=== PATIENT | male | born 1955 | race Caucasian/White ===

== ENCOUNTER → 2022-03-04 09:01 | Outpatient (CLI) | payer MEDICARE, SELFPAY ==
[2022-03-04 11:29] LABS: COVID19 -Nasal RAPID Negative (Negative)
== END ==
PROVIDERS: PCP Family Medicine; Visit Provider Surgery
DX: Z20.822 Contact with and (suspected) exposure to COVID-19 (principal); Z01.812 Encounter for preprocedural laboratory examination
CPT/HCPCS: 87635; C9803

== ENCOUNTER 2022-03-05 13:09 | Day surgery (SDC) | payer MEDICARE, SELFPAY ==
[2022-03-01 09:00] VITALS: BMI 34.2
[2022-03-05] VITALS (20 sets, daily range): BP systolic 125–188; BP diastolic 72–125; PULSE 14–84; RESP 10–18; TEMP 36.1–37.1; O2SAT 92–97; BMI 34.2
[2022-03-05] MEDS: LACTATED RINGERS 1,000 ML 42 ML IV (13:59)
--- NOTE | 2022-03-05 14:03 | SUR.PREOP ---
Patient presents with HTN after several checks on both upper extremities. BP to left arm 206/127, HR 84; BP to right arm 188/118; patient states that he takes labatelol 100 mg; HCTZ 25 mg; nifedipine 30 mg and quinapril; but has not taken his medications since Friday because I forgot to read my pre-op paperwork. Patient asymptomatic. Notified Anesthesiologist Dr Bridger Estrada. Verbal orders received for Labetalol 100 mg po now. Notified Primary Nurse of orders.
[2022-03-05] MEDS: LABETALOL 100 MG TABLET PO (14:15)
--- NOTE | 2022-03-05 15:46 | PM.HP.1 ---
History of Present Illness History of Present Illness Date Patient Seen: 03/05/22 Time Patient Seen: 15:46 Chief complaint: LAP RECURRENT RIH REPAIR W/MESH Narrative: Alan is here for his laparoscopic recurrent right inguinal hernia repair with mesh. See office note from January for details. Patient History Medical History Anxiety Arthritis COVID-19 virus infection (10/2021) Diverticulosis Edema Enlarged prostate Headache, migraine Heart murmur Hypertension KAYLA (obstructive sleep apnea) PAF (paroxysmal atrial fibrillation) Surgical History History of knee surgery (2012) Hx of hernia repair Hx of shoulder surgery (2014) Family & Social History Family History Father Hypertension Mother Hypertension Grandmother Diabetes mellitus Social History: household members spouse Tobacco & Substance use: Tobacco type cigarettes Smoking Status Former smoker alcohol intake current alcohol intake frequency a few times a month Substance Use Type marijuana Meds Home Medications and Allergies Home Medications Medication Instructions Recorded Confirmed Type amitriptyline 25 mg tablet 25 mg PO BEDTIME PRN Sleep 01/28/22 03/01/22 History apixaban 5 mg tablet 5 mg PO BID 01/28/22 03/05/22 History aspirin 81 mg tablet,delayed 81 mg PO DAILY 01/28/22 03/05/22 History release (Adult Low Dose Aspirin) flecainide 150 mg tablet 150 mg PO Q12H 01/28/22 03/05/22 History hydrochlorothiazide 25 mg tablet 25 mg PO DAILY 01/28/22 03/05/22 History labetalol 100 mg tablet 100 mg PO DAILY 01/28/22 03/05/22 History montelukast 10 mg tablet 10 mg PO DAILY 01/28/22 01/28/22 History nifedipine 30 mg tablet,extended 30 mg PO DAILY 01/28/22 03/05/22 History release quinapril 40 mg tablet 40 mg PO DAILY 01/28/22 03/05/22 History tamsulosin 0.4 mg capsule 0.4 mg PO BEDTIME 03/01/22 03/05/22 History Allergies Allergy/AdvReac Type Severity Reaction Status Date / Time No Known Drug Allergies Allergy Verified 03/05/22 13:43 Exam Vital Signs (past 8 hours): - 03/05/22 13:49 03/05/22 14:15 03/05/22 15:16 Temperature 98.3 F Pulse Rate 84 76 72 Respiratory Rate 16 16 Blood Pressure 188/118 H 187/125 H 178/101 H Pulse Oximetry 96 96 Oxygen Delivery Method Room Air Room Air Oxygen Delivery Method Room Air Const General: No acute distress Assessment & Plan Assessment and plan (1) Recurrent right inguinal hernia: Status: Acute Plan We reviewed the risks and benefits of laparoscopic right inguinal hernia repair with mesh. He would like to proceed. Time Spent With Patient Critical Care time: I spent a total of [] minutes of critical care time on this patient's care today; this time is exclusive of procedural time.
[2022-03-05] MEDS: CEFAZOLIN 2 GM/100 ML PREMIX 100 ML IV (16:15)
--- NOTE | 2022-03-05 16:43 | SUR.OPER ---
Supine on padded OR bed with pink pad positioner, head on pillow, arms padded and tucked at sides, legs uncrossed, safety belt at thigh, tape over blanket over lower legs . Gel pad under bilateral heels.
[2022-03-05] MEDS: BUPIVACAINE 0.5% (PF) 30 ML, EPINEPHrine 0.15 MG INJ (17:32)
[2022-03-05] MEDS: LIDOCAINE 1% 20 ML INJ (17:33)
[2022-03-05] MEDS: OXYCODONE IR 5 MG TABLET PO ×2 (18:28→19:42)
[2022-03-05] MEDS: ACETAMINOPHEN 325 MG TABLET 975 MG PO (18:29)
--- NOTE | 2022-03-05 18:29 | PM.OP.1 ---
Operative Date/Time/Diagnoses Date of procedure: 03/05/22 Time of procedure: 18:29 Pre-op diagnosis: Recurrent right inguinal hernia Post-op diagnosis: same Procedure & Clinicians Procedure: Laparoscopic recurrent right inguinal hernia repair with mesh Same procedure as scheduled: Yes Surgeon: Phill Joyce Operative Notes Procedure in detail: The patient was given preoperative antibiotics. The patient was brought to the operating room, placed on the table in the supine position with the arms tucked and general anesthesia was induced. The abdomen was prepped and draped in the usual fashion. A time-out was performed. A 2 cm curvilinear supraumbilical incision was created and dissection was carried down to fascia. The fascia was scored transversely with cautery. A [place] was used to grasp the inferior leaf and elevate the abdominal wall. A Peon clamp was used to magaña the peritoneum. The Willy port was placed and the abdomen was insufflated to 15 mmHg. The camera was inserted, there was no evidence of any injury from the entry. There was a right direct inguinal hernia. 5 mm ports were placed under direct vision in the mid left and mid right abdomen. The patient was positioned in steep Trendelenburg. We created right peritoneal flap. The peritoneum was dissected off the cord structures. There was a very stuck fat containing indirect hernia. The fat was eventually able to be reduced. A a large right Bard mesh was brought in and placed over the defect with the medial edge against Tuan's ligament. The fatty hernia contents were allowed to sit within the concavity of the mesh which held it in place nicely. We then closed the peritoneal flap with a running 3-0 barbed suture. We took one last look around the abdomen and saw no other abnormalities. The suture was removed and accounted for. The 5 mm ports were removed under direct vision. The abdomen was desufflated. The Willy port was removed. Additional local was injected into the fascia and the infraumbilical fascial incision was closed with 3 interrupted 0 Vicryl sutures. The skin incisions were closed with 4 Monocryl, Steri-Strips and Band-Aids. Post-operative Condition: stable Disposition: PACU
[2022-03-05] MEDS: ONDANSETRON 4 MG/2 ML INJ IV (18:42)
[2022-03-05] MEDS: TAMSULOSIN 0.4 MG CAPSULE PO (21:20)
[2022-03-05] MEDS: FLECAINIDE 100 MG TABLET 150 MG PO (21:20)
[2022-03-05] MEDS: AMITRIPTYLINE 25 MG TABLET PO (21:20)
[2022-03-06 03:00] VITALS: BP 118/70; PULSE 72; RESP 16; TEMP 36.6; O2SAT 94
--- NOTE | 2022-03-06 04:24 | PC.NURSE ---
Pt arrived to the unit around 2029 from PACU. Pt is AxOx4, needs 1 person assistance and cooperative. VSS, pt denied pain. Lap sites x 3 looks clean and dry. Pt is on 2L O2 overnight due to pt was desats till 88% when he sleeps. Pt has sleep apnea. Otherwise, no other changes. Continue monitor.
[2022-03-06] MEDS: HYDROCODONE/ACET 5/325 TABLET 1 TAB PO (07:01)
[2022-03-06 08:14] VITALS: BP 158/85; PULSE 89; RESP 16; TEMP 36.6; O2SAT 94
[2022-03-06 08:22] VITALS: BP 158/85; PULSE 89
[2022-03-06] MEDS: FLECAINIDE 100 MG TABLET 150 MG PO (08:22)
[2022-03-06] MEDS: LABETALOL 100 MG TABLET PO (08:22)
[2022-03-06 08:23] VITALS: BP 158/85; PULSE 89
[2022-03-06] MEDS: hydroCHLOROthiazide 25 MG TABLET PO (08:23)
[2022-03-06] MEDS: NIFEdipine 30 MG TAB ER PO (08:23)
[2022-03-06] MEDS: lisinopriL 20 MG TABLET 40 MG PO (08:23)
[2022-03-06] MEDS: ACETAMINOPHEN 325 MG TABLET 650 MG PO (10:31)
--- NOTE | 2022-03-06 11:16 | CM.DANOTE ---
DCP Assessment Patient is 67 y/o male who presents to post Hernia surgery performed by Dr. Joyce. Patient's PCP is Dr. Dinero. Patient has [employer] Medicare insurance. Patient sees Information Technology Director Dr. Gutiérrez, Patient has f/u appt with Dr. Joyce on 03/18/22. Patient has hx of Hypertension, PAF, and KAYLA. OYSTER SORTER and DCP Xi, RN enter room to meet with patient. Patient presents as A/Ox3, patient endorses independence with ADLs. Patient endorses he resides at home with spouse. Patient endorses this was a planned surgery and he denies and DCP needs upon d/c to home. Plan: Patient to d/c to home today with spouse upon medical stability, No DCP needs. GELACIO Cary Discharge Planning/Care Management CM Discharge Assessment Start: 03/06/22 11:14 Freq: Status: Active Protocol: Document 03/06/22 11:14 LN (Rec: 03/06/22 11:16 LN [id number]) Discharge Planning Assessment Assigned Supervisor [employer] GELACIO Hernández Advance Directives? No Advance Directives on File No History Provided By Patient Has Patient been admitted in last 30 No days? Prior Living Arrangements House Household Members spouse Type of transporation used prior to Drives own vehicle admit Independent with ADL's Yes Is patient alert and oriented? Yes Barriers to Discharge No Discharge Plan Home Referrals Initiated None needed Please Provide Date Initial DC 03/06/22 Assessment Was Performed
== END 2022-03-06 10:52 | disposition home or self-care (01) ==
LOC: OR 18:34 → AC 20:31
PROVIDERS: PCP Family Medicine; Referring Provider Surgery; Visit Provider Surgery
PROC: 0YQ54ZZ Repair Right Inguinal Region, Percutaneous Endoscopic Approach (ICD-10-PCS; CPT 49651; principal; 2022-03-05 15:00)
DX: K40.91 Unilateral inguinal hernia, without obstruction or gangrene, recurrent (principal); I48.0 Paroxysmal atrial fibrillation; G47.33 Obstructive sleep apnea (adult) (pediatric); I10 Essential (primary) hypertension
CPT/HCPCS: 49651; 49561; J0171; J0690; J1100; J2250; J2405; J2704; J3010

== ENCOUNTER → 2022-08-27 12:09 | Outpatient (CLI) | payer MEDICARE, SELFPAY ==
[2022-03-05 20:33] VITALS: BMI 34.2
--- NOTE | 2022-08-27 12:10 | DI.CT.S_ITS ---
PROCEDURE: CT ABDOMEN PELVIS W CON INDICATIONS: Abdominal pain TECHNIQUE: After the administration of oral and intravenous contrast, axial sections were acquired from the lung bases to the pubic symphysis. Coronal and sagittal reformats were performed. For radiation dose reduction, the following was used: automated exposure control, adjustment of mA and/or kV according to patient size. COMPARISON:None. FINDINGS: Image quality: Excellent. Lung bases: Unremarkable. Heart: No significant findings. ABDOMEN: Liver: Unremarkable. Gallbladder: Unremarkable. Biliary ducts: Unremarkable. Pancreas: Unremarkable. Spleen: Unremarkable. Adrenal Glands: Unremarkable. Kidneys and Ureters: Unremarkable. Stomach and Bowel: Stomach, small bowel loops, and colon are unremarkable. The appendix is thin walled and gas filled. There are scattered sigmoid diverticula. No evidence for diverticulitis. Peritoneum: No abnormal intraperitoneal fluid. No free air. Ventral Wall: There is a large fat containing paraumbilical hernia. Abdominal Nodes: No retroperitoneal or mesenteric adenopathy by size criteria. Vessels: Aorta and inferior vena cava are normal in size. There are scattered atheromatous calcifications throughout the aorta and iliac arteries bilaterally. PELVIS: Pelvic Organs: Unremarkable. Bladder: Unremarkable. Pelvic Nodes: No enlarged lymph nodes. Miscellaneous: There is a moderate-sized fat containing left inguinal hernia. Bones: A sclerotic focus is present at the right pubic root. This may represent a bone island; however no prior studies are available. Mild degenerative changes are present within the lumbar spine. IMPRESSION: 1. Large fat containing paraumbilical hernia. 2. No acute intra-abdominal findings. Normal appendix. Diverticulosis. No acute diverticulitis. 3. Sclerotic focus within the right pubic root which may represent a bone island; however no prior studies are available for comparison. If the patient endorses focal pain in this region, further characterization with MRI is recommended. Alternatively, three-month plain film recommended to ensure stability of this finding. Dictated by: Yanique Mei M.D. on 08/27/2022 at 16:37 Approved by: Yanique Mei M.D. on 08/27/2022 at 16:41
== END ==
PROVIDERS: PCP Family Medicine; Referring Provider Surgery; Visit Provider Surgery
DX: K57.30 Diverticulosis of large intestine without perforation or abscess without bleeding (principal); R10.13 Epigastric pain; K40.90 Unilateral inguinal hernia, without obstruction or gangrene, not specified as recurrent; K42.9 Umbilical hernia without obstruction or gangrene; M47.816 Spondylosis without myelopathy or radiculopathy, lumbar region; M89.9 Disorder of bone, unspecified
CPT/HCPCS: 36415; 74177; 82565; 84520; Q9967

== ENCOUNTER → 2022-08-27 12:11 | Outpatient (CLI) | payer MEDICARE, SELFPAY ==
[2022-03-05 20:33] VITALS: BMI 34.2
[2022-08-27 13:05] LABS: BUN Creatinine Ratio 24.4 (6-22); Blood Urea Nitrogen 21 mg/dL (9-20); Estimated Glomerular Filt Rate > 60 mL/min (>60)
== END ==
PROVIDERS: PCP Family Medicine; Referring Provider Surgery; Visit Provider Surgery
DX: R10.13 Epigastric pain (principal)
CPT/HCPCS: 36415; 82565; 84520

== ENCOUNTER 2022-10-01 05:58 | Day surgery (SDC) | payer MEDICARE, SELFPAY ==
[2022-03-05 20:33] VITALS: BMI 34.2
[2022-09-25 14:14] VITALS: BMI 36.6
[2022-10-01] VITALS (9 sets, daily range): BP systolic 111–150; BP diastolic 66–88; PULSE 52–74; RESP 12–19; TEMP 36.2–36.4; O2SAT 93–96; BMI 35.7
[2022-10-01] MEDS: LACTATED RINGERS 1,000 ML 42 ML IV ×2 (07:02→11:42)
--- NOTE | 2022-10-01 10:17 | P.HP_ITS ---
History of Present Illness History of Present Illness Date Patient Seen: 10/01/22 Time Patient Seen: 10:17 Chief complaint: Open Ventral Hernia Repair w/mesh Narrative: Alan is here for his ventral hernia repair. He has a hernia that showed up on the CT scan at the site of the laparoscopic camera port from his lap hernia repair. [facility] Medical History (Updated 10/01/22 @ 10:17 by Phill Joyce MD) Anxiety Arthritis COVID-19 virus infection (10/2021) Diverticulosis Edema Enlarged prostate Headache, migraine Heart murmur Hypertension KAYLA (obstructive sleep apnea) PAF (paroxysmal atrial fibrillation) Surgical History (Updated 09/25/22 @ 14:16 by Montse Thao RN) History of knee surgery (2012) Hx of hernia repair Hx of hernia repair (03/05/22) Hx of shoulder surgery (2014) Family History Father Hypertension Heart disease Mother Hypertension Heart disease Grandmother Diabetes mellitus Stroke Social History marital status: household members: spouse lives independently: Yes occupational status: employed Smoking Status: Former smoker alcohol intake: current substance use type: does not use Meds Home Medications and Allergies Home Medications Medication Instructions Recorded Confirmed Type apixaban 5 mg tablet 5 mg PO BID 01/28/22 10/01/22 History aspirin 81 mg tablet,delayed 81 mg PO DAILY 01/28/22 10/01/22 History release (Adult Low Dose Aspirin) flecainide 150 mg tablet 150 mg PO Q12H 01/28/22 10/01/22 History hydrochlorothiazide 25 mg tablet 25 mg PO DAILY 01/28/22 10/01/22 History labetalol 100 mg tablet 100 mg PO DAILY 01/28/22 10/01/22 History nifedipine 30 mg tablet,extended 30 mg PO DAILY 01/28/22 10/01/22 History release tamsulosin 0.4 mg capsule 0.4 mg PO BEDTIME 03/01/22 10/01/22 History Allergies Allergy/AdvReac Type Severity Reaction Status Date / Time [id number] Reductase AdvReac Unknown ITCHING Verified 10/01/22 06:39 Inhibitor Exam Vital Signs (past 8 hours): - 10/01/22 06:48 Temperature 97.1 F L Pulse Rate 62 Respiratory Rate 17 Blood Pressure 150/85 H Pulse Oximetry 93 Oxygen Delivery Method Room Air Oxygen Delivery Method Room Air Narrative Exam Narrative: Ventral hernia Assessment & Plan Assessment and plan (1) Ventral hernia: Status: Acute Plan Plan to proceed to OR for an open ventral hernia repair with mesh.
[2022-10-01] MEDS: CEFAZOLIN VIAL 3 GM in SODIUM CHLORIDE 0.9% 100 ML IV (10:52)
--- NOTE | 2022-10-01 11:12 | SUR.OPER ---
Supine on padded OR bed, head on pillow, arms secured on padded arm boards at <90 degrees abduction, legs uncrossed, safety belt at thigh, tape over blanket over lower legs.
[2022-10-01] MEDS: BUPIVACAINE 0.5% (PF) 30 ML, EPINEPHrine 0.15 MG INJ (11:55)
--- NOTE | 2022-10-01 11:56 | PM.OP.1 ---
Operative Date/Time/Diagnoses Date of procedure: 10/01/22 Time of procedure: 11:56 Pre-op diagnosis: Ventral incisional hernia Post-op diagnosis: same Procedure & Clinicians Procedure: Open ventral hernia repair with mesh Same procedure as scheduled: Yes Surgeon: Phill Joyce Administrative Asst: Adams Rose Operative Notes Procedure in detail: Ancef was administered. The patient was brought to the operating room, placed on the table in the supine position and general endotracheal anesthesia was induced. The abdomen was prepped and draped in the usual fashion. A time-out was performed. A 7 cm transverse incision was made over old port site. Dissection was carried down to the hernia sac. The hernia sac was freed from the fascial ring. The sac was resected. There was no bowel or omentum adherent to the sac. The fascia was then closed with multiple interrupted 0 Ethibond sutures. The subcutaneous adipose tissue was cleared off of the anterior sheath circumferentially about 2 cm in each direction. A piece of polypropylene mesh was trimmed to fit over the fascial closure and secured with Tisseel. Once the Tisseel was dried the subcutaneous adipose tissue was closed with interrupted 3-0 Vicryl sutures. The skin was closed with multiple interrupted 3-0 Vicryl dermal sutures followed by a running 4 Monocryl subcuticular closure. EBL: 20 mL Steri-Strips were applied and an abdominal binder was applied. Post-operative Disposition: PACU
[2022-10-01] MEDS: OXYCODONE/ACETAMINOPHEN 5/325 TABLET 1 TAB PO (12:44)
== END 2022-10-01 13:16 | disposition home or self-care (01) ==
PROVIDERS: PCP Family Medicine; Referring Provider Surgery; Visit Provider Surgery
PROC: (CPT 49593; principal; 2022-10-01 07:45)
DX: K43.2 Incisional hernia without obstruction or gangrene (principal)
CPT/HCPCS: 49593; C1781; J0171; J0690; J1100; J1885; J2250; J2405; J2704; J3010; J3490